=== PATIENT | female | born 1965 | race Caucasian/White ===

== ENCOUNTER 2017-12-24 08:03 | Day surgery (SDC) | payer OTHER ==
[~2017-12-24 08:03] MED LIST: TAMOXIFEN CITRA10 MG PO
== END 2017-12-24 16:00 | disposition home or self-care (01) ==
LOC: CIR.AMB 08:03
DX: N84.0 Polyp of corpus uteri (principal)

== ENCOUNTER 2021-04-11 05:45 | Day surgery (SDC) | payer OTHER | END 2021-04-11 12:10 | disposition home or self-care (01) | LOC: CIR.AMB 05:45 | PROVIDERS: ATTEND Obstetrics & Gynecology | DX: N84.0 Polyp of corpus uteri (principal) ==

== ENCOUNTER 2023-01-16 09:20 | Inpatient (IN) | payer OTHER ==
[~2023-01-16] VITALS: Ht 162.6 cm; Wt 82.1 kg
[2023-01-24] MEDS ORDERED: GABAPENTIN300 MG PO (07:04)
[2023-01-24] MEDS ORDERED: POLY119PG PO (07:04)
[2023-01-24] MEDS ORDERED: IBUPROFEN800 MG PO (07:04)
[2023-01-24] MEDS ORDERED: SIMETHICONE125 M1 PO (07:05)
== END 2023-01-24 09:27 | disposition home or self-care (01) | DRG 743 ==
LOC: EDSTATUS 01-17 08:45 → ADM 01-17 08:45 → O/R 01-22 05:35 → OB/GYN 01-22 08:45
PROVIDERS: ADMIT Obstetrics & Gynecology; ATTEND Obstetrics & Gynecology
PROC: 0UT70ZZ Resection of Bilateral Fallopian Tubes, Open Approach (ICD-10-PCS; 2023-01-22)
PROC: 0UT20ZZ Resection of Bilateral Ovaries, Open Approach (ICD-10-PCS; 2023-01-22)
PROC: 0UT90ZZ Resection of Uterus, Open Approach (ICD-10-PCS; principal; 2023-01-22 09:45)
DX: D25.9 Leiomyoma of uterus, unspecified (principal); Z20.822 Contact with and (suspected) exposure to COVID-19; N80.03 Adenomyosis of the uterus

== ENCOUNTER 2024-11-04 12:40 | Outpatient (CLI) | payer OTHER ==
[~2024-11-04 12:40] MED LIST changes: +GABAPENTIN300 MG PO; +IBUPROFEN800 MG PO; +POLY119PG PO; +SIMETHICONE125 M1 PO
== END 2024-11-04 12:44 | disposition home or self-care (01) ==
LOC: TOM 12:40
PROVIDERS: ATTEND Internal Medicine Gastroenterology
DX: Z12.11 Encounter for screening for malignant neoplasm of colon (principal); K56.600 Partial intestinal obstruction, unspecified as to cause